=== PATIENT | male | born 1935 | race Caucasian/White ===

== ENCOUNTER 2017-04-10 17:31 | Inpatient (IN) | payer MEDICARE, OTHER ==
[~2017-04-10] VITALS: Ht 177.8 cm; Wt 86.2 kg
[2017-04-10] MEDS ORDERED: DIGO125T10 PO (18:18)
[2017-04-10] MEDS ORDERED: POTA8TAB PO (18:18)
[2017-04-10] MEDS ORDERED: QUET50TA PO (18:18)
[2017-04-10] MEDS ORDERED: AMIO200T42 PO (18:18)
[2017-04-10] MEDS ORDERED: ASPI-496 PO (18:18)
[2017-04-10] MEDS ORDERED: FURO-92 PO (18:18)
[2017-04-10] MEDS ORDERED: TAMS0.4C2 PO (18:18)
[2017-04-10] MEDS ORDERED: AZIT250T PO (18:18)
[2017-04-10] MEDS ORDERED: CARV12.543 PO (18:18)
[2017-04-10] MEDS ORDERED: ATOR80TA75 PO (18:18)
[2017-04-10] MEDS ORDERED: SODIUM CHLORIDE FLUSH 10ML SYR IVF ONE (18:30)
[2017-04-10 18:46] LABS: BLOOD UREA NITROGEN 39 mg/dL (7-18)
[2017-04-10 18:52] LABS: ASPARTATE AMINO TRANSFERASE 41 U/L (15-37)
[2017-04-10 18:56] LABS: IS PT STATUS REG ER OR PRE ER? YES
[2017-04-10] MEDS ORDERED: FUROSEMIDE 40 MG/4 ML ONE (19:25)
[2017-04-10] MEDS ORDERED: FUROSEMIDE 40 MG/4 ML IV ONE (19:30)
[2017-04-10] MEDS ORDERED: CEFTRIAXONE PMX 1GM/50ML 50 ML IVPB ONE (20:00)
[2017-04-10] MEDS ORDERED: AZITHROMYCIN 500 MG in SODIUM CHLORIDE 0.9% 250 ML IVPB ONE (20:00)
[2017-04-10] MEDS ORDERED: CEFTRIAXONE PMX 1GM/50ML 50 ML ONE (20:13)
[2017-04-10] MEDS ORDERED: SODIUM CHLORIDE FLUSH 10ML SYR IVF PRN (20:30)
[2017-04-10 21:51] VITALS: BP 123/84
[2017-04-10] MEDS ORDERED: TEMPLATE NON-FORMULARY MED. (Quetiapine Fumarate** 50 MG) PO SCH (22:00)
[2017-04-10] MEDS ORDERED: ONDANSETRON 2MG/ML, 2ML IVPush PRN (22:00)
[2017-04-10] MEDS: AZITHROMYCIN 500 MG in SODIUM CHLORIDE 0.9% 250 ML IV SCH (22:00)
[2017-04-10] MEDS: CEFTRIAXONE PMX 1GM/50ML 50 ML IV SCH (22:00)
[2017-04-11 00:15] LABS: IS PT STATUS REG ER OR PRE ER? NO
[2017-04-11] MEDS ORDERED: MAGNESIUM HYDROXIDE 8%, 30ML UDC PO ONE (00:30)
[2017-04-11] MEDS: HEPARIN 5,000 UNITS/ML, 1ML SQ SCH ×3 (00:39→16:52)
[2017-04-11] MEDS: CARVEDILOL 12.5 MG TABLET PO SCH ×3 (00:39→20:16)
[2017-04-11 02:35] VITALS: BP 132/82
[2017-04-11 03:19] LABS: POTASSIUM,URINE RANDOM 13 mmol/L
[2017-04-11 06:18] LABS: BLOOD UREA NITROGEN 37 mg/dL (7-18)
[2017-04-11 06:20] LABS: IS PT STATUS REG ER OR PRE ER? NO
[2017-04-11 07:22] VITALS: BP 119/77
[2017-04-11] MEDS: TAMSULOSIN 0.4 MG CAP.ER.24H PO SCH (09:18)
[2017-04-11] MEDS: AMIODARONE 200 MG TABLET PO SCH (09:18)
[2017-04-11] MEDS: FUROSEMIDE 40 MG/4 ML IV SCH (09:18)
[2017-04-11] MEDS: ASPIRIN 81 MG TABLET EC PO SCH (09:18)
[2017-04-11] MEDS: SODIUM CHLORIDE FLUSH 3ML SYRINGE IVF SCH ×2 (09:19→20:17)
[2017-04-11] MEDS: CEFTRIAXONE PMX 1GM/50ML 50 ML IV SCH ×2 (12:16→22:28)
[2017-04-11] MEDS: QUETIAPINE 25MG TABLET PO SCH ×2 (12:17→20:17)
[2017-04-11 13:45] VITALS: BP 122/74
[2017-04-11 18:26] VITALS: BP 127/76
[2017-04-11] MEDS: ATORVASTATIN 80 MG TABLET PO SCH (20:16)
[2017-04-11] MEDS ORDERED: QUETIAPINE 25MG TABLET PO SCH (21:00)
[2017-04-11] MEDS: AZITHROMYCIN 500 MG in SODIUM CHLORIDE 0.9% 250 ML IV SCH (21:17)
[2017-04-11] MEDS ORDERED: ACETAMINOPHEN 325 MG TABLET ONE (21:44)
[2017-04-11] MEDS: ACETAMINOPHEN 325 MG TABLET PO PRN (21:47)
[2017-04-12] MEDS: HEPARIN 5,000 UNITS/ML, 1ML SQ SCH ×3 (00:26→17:47)
[2017-04-12 00:33] VITALS: BP 118/69
[2017-04-12 06:37] VITALS: BP 143/83
[2017-04-12] MEDS: ASPIRIN 81 MG TABLET EC PO SCH (08:46)
[2017-04-12] MEDS: CARVEDILOL 12.5 MG TABLET PO SCH ×2 (08:46→21:21)
[2017-04-12] MEDS: AMIODARONE 200 MG TABLET PO SCH (08:46)
[2017-04-12] MEDS: TAMSULOSIN 0.4 MG CAP.ER.24H PO SCH (08:46)
[2017-04-12] MEDS: QUETIAPINE 25MG TABLET PO SCH ×2 (08:47→21:22)
[2017-04-12] MEDS: ACETAMINOPHEN 325 MG TABLET PO PRN ×3 (08:47→17:47)
[2017-04-12] MEDS: FUROSEMIDE 40 MG/4 ML IV SCH (08:47)
[2017-04-12] MEDS: SODIUM CHLORIDE FLUSH 3ML SYRINGE IVF SCH ×2 (08:48→21:00)
[2017-04-12] MEDS: CEFTRIAXONE PMX 1GM/50ML 50 ML IV SCH (11:49)
[2017-04-12] MEDS: SODIUM CHLORIDE NASAL SPRAY 45ML BOTTLE NAS PRN ×2 (12:38→17:47)
[2017-04-12 13:29] VITALS: BP 117/72
[2017-04-12 18:44] VITALS: BP 113/67
[2017-04-12] MEDS: AZITHROMYCIN 500 MG in SODIUM CHLORIDE 0.9% 250 ML IV SCH (21:21)
[2017-04-12] MEDS: ATORVASTATIN 80 MG TABLET PO SCH (21:22)
[2017-04-13] MEDS: SODIUM CHLORIDE NASAL SPRAY 45ML BOTTLE NAS PRN (00:19)
[2017-04-13] MEDS: CEFTRIAXONE PMX 1GM/50ML 50 ML IV SCH ×3 (00:20→23:23)
[2017-04-13] MEDS: HEPARIN 5,000 UNITS/ML, 1ML SQ SCH ×4 (00:22→23:28)
[2017-04-13 00:50] VITALS: BP 117/78
[2017-04-13 02:37] VITALS: BP 119/76
[2017-04-13 06:35] VITALS: BP 114/73
[2017-04-13] MEDS: AMIODARONE 200 MG TABLET PO SCH (08:00)
[2017-04-13] MEDS: QUETIAPINE 25MG TABLET PO SCH ×2 (08:00→22:03)
[2017-04-13] MEDS: SODIUM CHLORIDE FLUSH 3ML SYRINGE IVF SCH ×2 (08:00→21:00)
[2017-04-13] MEDS: FUROSEMIDE 40 MG/4 ML IV SCH (08:00)
[2017-04-13] MEDS: CARVEDILOL 12.5 MG TABLET PO SCH ×2 (08:00→22:03)
[2017-04-13] MEDS: ASPIRIN 81 MG TABLET EC PO SCH (08:01)
[2017-04-13] MEDS: TAMSULOSIN 0.4 MG CAP.ER.24H PO SCH (08:01)
[2017-04-13 13:45] VITALS: BP 120/78
[2017-04-13 18:24] VITALS: BP 119/48
[2017-04-13] MEDS: ATORVASTATIN 80 MG TABLET PO SCH (22:03)
[2017-04-13] MEDS: AZITHROMYCIN 500 MG in SODIUM CHLORIDE 0.9% 250 ML IV SCH (22:03)
[2017-04-13] MEDS: ACETAMINOPHEN 325 MG TABLET PO PRN (22:40)
[2017-04-14 03:48] VITALS: BP 126/82
[2017-04-14 05:28] LABS: BLOOD UREA NITROGEN 43 mg/dL (7-18)
[2017-04-14 06:58] VITALS: BP 131/81
[2017-04-14] MEDS: HEPARIN 5,000 UNITS/ML, 1ML SQ SCH ×2 (10:16→16:01)
[2017-04-14] MEDS: TAMSULOSIN 0.4 MG CAP.ER.24H PO SCH (10:17)
[2017-04-14] MEDS: AMIODARONE 200 MG TABLET PO SCH (10:18)
[2017-04-14] MEDS: ASPIRIN 81 MG TABLET EC PO SCH (10:18)
[2017-04-14] MEDS: CARVEDILOL 12.5 MG TABLET PO SCH ×2 (10:18→21:32)
[2017-04-14] MEDS: QUETIAPINE 25MG TABLET PO SCH ×2 (10:19→21:31)
[2017-04-14] MEDS: FUROSEMIDE 40 MG/4 ML IV SCH (10:19)
[2017-04-14] MEDS: SODIUM CHLORIDE FLUSH 3ML SYRINGE IVF SCH ×2 (10:28→21:00)
[2017-04-14] MEDS: CEFTRIAXONE PMX 1GM/50ML 50 ML IV SCH (11:24)
[2017-04-14 15:48] VITALS: BP 120/79
[2017-04-14] MEDS: ACETAMINOPHEN 325 MG TABLET PO PRN (15:59)
[2017-04-14] MEDS: SODIUM CHLORIDE NASAL SPRAY 45ML BOTTLE NAS PRN (16:00)
[2017-04-14 19:34] VITALS: BP 122/73
[2017-04-14] MEDS: ATORVASTATIN 80 MG TABLET PO SCH (21:31)
[2017-04-14] MEDS: AZITHROMYCIN 500 MG in SODIUM CHLORIDE 0.9% 250 ML IV SCH (23:22)
[2017-04-15] MEDS: CEFTRIAXONE PMX 1GM/50ML 50 ML IV SCH ×2 (00:32→12:04)
[2017-04-15] MEDS: HEPARIN 5,000 UNITS/ML, 1ML SQ SCH ×2 (00:32→08:25)
[2017-04-15 04:04] VITALS: BP 127/81
[2017-04-15 05:51] LABS: BLOOD UREA NITROGEN 41 mg/dL (7-18)
[2017-04-15 07:16] VITALS: BP 137/88
[2017-04-15] MEDS: SODIUM CHLORIDE FLUSH 3ML SYRINGE IVF SCH (08:32)
[2017-04-15] MEDS: CARVEDILOL 12.5 MG TABLET PO SCH (08:33)
[2017-04-15] MEDS: ASPIRIN 81 MG TABLET EC PO SCH (08:33)
[2017-04-15] MEDS: AMIODARONE 200 MG TABLET PO SCH (08:33)
[2017-04-15] MEDS: TAMSULOSIN 0.4 MG CAP.ER.24H PO SCH (08:33)
[2017-04-15] MEDS: QUETIAPINE 25MG TABLET PO SCH (08:34)
[2017-04-15] MEDS ORDERED: DIGOXIN 0.125 MG TABLET PO SCH (09:00)
[2017-04-15] MEDS ORDERED: FUROSEMIDE 40 MG/4 ML IV SCH (09:00)
[2017-04-15] MEDS ORDERED: CEFD300C37 PO (09:15)
[2017-04-15] MEDS: ACETAMINOPHEN 325 MG TABLET PO PRN (09:55)
[2017-04-15 12:11] VITALS: BP 122/75
[2017-04-15] MEDS ORDERED: POTA8TAB PO (14:38)
[2017-04-15] MEDS ORDERED: FURO-93 PO (14:38)
[2017-04-15] MEDS ORDERED: DIGO125T PO (14:40)
== END 2017-04-15 17:00 | disposition home or self-care (01) | DRG 682 ==
LOC: ED 18:26 → EDIP 20:21 → 5SO 21:43 → 4EST 04-14 22:00
PROVIDERS: ADMIT Internal Medicine; ATTEND Family Medicine
DX: N17.0 Acute kidney failure with tubular necrosis (principal); I50.43 Acute on chronic combined systolic (congestive) and diastolic (congestive) heart failure; E43 Unspecified severe protein-calorie malnutrition; J96.21 Acute and chronic respiratory failure with hypoxia; J15.9 Unspecified bacterial pneumonia; I13.0 Hypertensive heart and chronic kidney disease with heart failure and stage 1 through stage 4 chronic kidney disease, or unspecified chronic kidney disease; D53.9 Nutritional anemia, unspecified; E78.00 Pure hypercholesterolemia, unspecified; E78.5 Hyperlipidemia, unspecified; F60.9 Personality disorder, unspecified; N18.9 Chronic kidney disease, unspecified; N28.1 Cyst of kidney, acquired; N40.0 Benign prostatic hyperplasia without lower urinary tract symptoms; T46.0X5A Adverse effect of cardiac-stimulant glycosides and drugs of similar action, initial encounter; Z87.891 Personal history of nicotine dependence; Z95.0 Presence of cardiac pacemaker; Z68.27 Body mass index [BMI] 27.0-27.9, adult
CPT/HCPCS: 36415; 71010; 76770; 80048; 80053; 80162; 81003; 82436; 82570; 82607; 82746; 83605; 83735; 83880; 84100; 84133; 84145; 84300; 84443; 84484; 85025; 85610; 85730; 87040; 87070; 87205; 87324; 87493; 93005; 93306; 96365; 96375; J0456; J0696; J1644; J1940; J7050